=== PATIENT | female | born 1940 | race Caucasian/White ===

== ENCOUNTER 2016-03-19 23:02 | Inpatient (IN) | payer MEDICARE, MEDICAID ==
[~2016-03-19] VITALS: Ht 152.4 cm; Wt 79.2 kg
[2016-03-20] VITALS (8 sets, daily range): BP systolic 105–137; BP diastolic 60–88
[2016-03-20] MEDS ORDERED: ZOLPIDEM TARTRATE 5 MG TABLET PO PRN (03:00)
[2016-03-20] MEDS ORDERED: ALBUTEROL FS 2.5 MG/0.5 ML VIAL.NEB NEB PRN (03:00)
[2016-03-20] MEDS ORDERED: IPRATROPIUM NEB FS 0.5 MG/2.5 ML AMPUL.NEB NEB PRN (03:00)
[2016-03-20] MEDS ORDERED: ONDANSETRON HCL/PF 4 MG/2 ML VIAL IVP PRN (03:00)
[2016-03-20] MEDS ORDERED: MAG HYDROX/AL HYDROX/SIMETH 30 ML UDC PO PRN (03:00)
[2016-03-20] MEDS ORDERED: ACETAMINOPHEN 325 MG TABLET PO PRN (03:00)
[2016-03-20] MEDS ORDERED: MAGNESIUM HYDROXIDE 30 ML UDC PO PRN (03:00)
[2016-03-20] MEDS ORDERED: ENOXAPARIN SODIUM 40 MG/0.4 ML DISP.SYRIN SQ SCH ×2 (03:00→09:00)
[2016-03-20] MEDS ORDERED: HYDROCODONE/APAP 5/325MG 1 EACH TABLET PO PRN (03:00)
[2016-03-20] MEDS ORDERED: Z GUARD REMEDY 2 OZ OINT TP PRN (03:00)
[2016-03-20] MEDS ORDERED: ENOXAPARIN SODIUM 40 MG/0.4 ML DISP.SYRIN SQ ONE (03:48)
[2016-03-20 06:50] LABS: BASOPHILS # (AUTO) 0.1 /CMM (0.0-0.2); BASOPHILS % (AUTO) 0.6 % (0.0-2.0); DIFF TOTAL % 100 %; EOSINOPHILS # (AUTO) 0.2 /CMM (0.0-0.7); HEMATOCRIT 45 % (39-51); HEMOGLOBIN 14.8 g/dL (13.5-17.5); LYMPHOCYTES # (AUTO) 3.5 /CMM (0.8-4.8); LYMPHOCYTES % (AUTO) 23.9 % (20.0-44.0); MEAN CORPUSCULAR HEMOGLOBIN 30 PG (26.0-33.0); MEAN CORPUSCULAR HGB CONC 33 g/dl (31.0-36.0); MEAN CORPUSCULAR VOLUME 90 fL (80-96); MONOCYTES # (AUTO) 1.4 /CMM (0.1-1.30); MONOCYTES % (AUTO) 9.3 % (2.0-12.0); NEUTROPHILS # (AUTO) 9.7 /CMM (1.8-8.9); NEUTROPHILS % (AUTO) 65.2 % (43.0-81.0); PLATELET COUNT (AUTO) 286 /CMM (150-450); RED BLOOD CELL COUNT(AUTO) 4.97 MIL/uL (4.5-6.0); WHITE BLOOD COUNT (AUTO) 14.9 K/uL (4.3-11.0)
[2016-03-20 07:24] LABS: ALBUMIN 2.9 g/dL (3.4-5.0); BILIRUBIN,TOTAL 0.4 mg/dL (0.2-1.0); CALCIUM, SERUM 8.8 mg/dL (8.5-10.1); CREATININE 0.7 mg/dL (0.6-1.3); PHOSPHORUS 4.1 mg/dL (2.5-4.9); POTASSIUM 4.3 mmol/L (3.5-5.1); TOTAL PROTEIN, SERUM 7.5 g/dL (6.4-8.2)
[2016-03-20] MEDS ORDERED: VERA120C3 PO (07:38)
[2016-03-20] MEDS ORDERED: ACAR25TA2 PO (07:38)
[2016-03-20] MEDS ORDERED: ALPR0.5T8 PO (07:38)
[2016-03-20] MEDS ORDERED: METF500T4 PO (07:38)
[2016-03-20] MEDS ORDERED: LUBI24CA7 PO (07:38)
[2016-03-20] MEDS ORDERED: LEVO75TA7 PO (07:38)
[2016-03-20] MEDS ORDERED: IBUP-1482 PO (07:38)
[2016-03-20] MEDS ORDERED: CELE-85 PO (07:38)
[2016-03-20] MEDS ORDERED: VALS1TAB50 PO (07:38)
[2016-03-20] MEDS ORDERED: UMEC1BLS IH (07:38)
[2016-03-20] MEDS ORDERED: BLOO-668 IN (07:38)
[2016-03-20] MEDS ORDERED: PRAV20TA4 PO (07:38)
[2016-03-20] MEDS ORDERED: GABA-534 PO (07:38)
[2016-03-20] MEDS ORDERED: LIRA0.6P2 SQ (07:41)
[2016-03-20] MEDS: PANTOPRAZOLE 40 MG TABLET.DR PO SCH (08:36)
[2016-03-20] MEDS: ASPIRIN 325 MG TABLET PO SCH (09:15)
[2016-03-20] MEDS ORDERED: RISE150T PO (09:16)
[2016-03-20] MEDS ORDERED: METH10TA2 PO (10:00)
[2016-03-20] MEDS ORDERED: IV SET PRIMARY PUMP SET 1 EA INFUS.SET MC ONE (12:20)
[2016-03-20] MEDS: Magnesium 1GM/D5W 100ML PREMIX 100 ML IV SCH ×4 (12:45→18:35)
[2016-03-20] MEDS ORDERED: ALPRAZOLAM 0.5 MG TABLET PO PRN (15:30)
[2016-03-20] MEDS ORDERED: IBUPROFEN 400 MG TABLET PO PRN (16:30)
[2016-03-20] MEDS: GABAPENTIN 300 MG CAPSULE PO SCH (17:15)
[2016-03-20] MEDS: METFORMIN 500 MG TABLET PO SCH (17:15)
[2016-03-20] MEDS: METHADONE HCL 10 MG TABLET PO SCH (17:16)
[2016-03-20] MEDS: HYDROGEL DRESSING 90 GM TUBE TP SCH (17:16)
[2016-03-20] MEDS: BLOOD SUGAR DIAGNOSTIC 1 EACH STRIP IN SCH (17:19)
[2016-03-20] MEDS ORDERED: PRAVASTATIN SODIUM 20 MG TABLET PO SCH (18:00)
[2016-03-20] MEDS ORDERED: Magnesium 1GM/D5W 100ML PREMIX PIGGYBACK IV ONE (18:30)
[2016-03-20] MEDS ORDERED: Magnesium 1GM/D5W 100ML PREMIX 100 ML IV SCH (18:30)
[2016-03-20] MEDS: ATORVASTATIN 40 MG TABLET PO SCH (21:40)
[2016-03-21] VITALS (7 sets, daily range): BP systolic 108–140; BP diastolic 58–82
[2016-03-21] MEDS: PANTOPRAZOLE 40 MG TABLET.DR PO SCH (08:39)
[2016-03-21] MEDS: LEVOTHYROXINE SODIUM 75 MCG TABLET PO SCH (08:39)
[2016-03-21] MEDS: ENOXAPARIN SODIUM 40 MG/0.4 ML DISP.SYRIN SQ SCH (09:26)
[2016-03-21] MEDS: GABAPENTIN 300 MG CAPSULE PO SCH ×2 (09:27→18:10)
[2016-03-21] MEDS: METFORMIN 500 MG TABLET PO SCH ×2 (09:28→18:09)
[2016-03-21] MEDS: METHADONE HCL 10 MG TABLET PO SCH (09:28)
[2016-03-21] MEDS: VERAPAMIL SR 120 MG TABLET.SA PO SCH (09:29)
[2016-03-21] MEDS: BLOOD SUGAR DIAGNOSTIC 1 EACH STRIP IN SCH ×3 (09:34→17:53)
[2016-03-21] MEDS: ASPIRIN 325 MG TABLET PO SCH (09:40)
[2016-03-21] MEDS: HYDROGEL DRESSING 90 GM TUBE TP SCH (09:40)
[2016-03-21 10:47] LABS: KETONES,URINE NEGATIVE (NEGATIVE); LEUKOCYTE ESTERASE ,URINE 1+ (NEGATIVE)
[2016-03-21 11:09] LABS: ADD UA MICROSCOPIC YES
[2016-03-21 11:11] LABS: ADD URINE CULTURE YES; RBC,URINE 0-2 /HPF (0-2)
[2016-03-21] MEDS: VALSARTAN 80 MG TABLET PO SCH (12:06)
[2016-03-21] MEDS: ATORVASTATIN 40 MG TABLET PO SCH (21:30)
[2016-03-22 08:00] VITALS: BP 129/73
[2016-03-22] MEDS: ASPIRIN 325 MG TABLET PO SCH (08:18)
[2016-03-22] MEDS: METFORMIN 500 MG TABLET PO SCH (08:18)
[2016-03-22 08:20] VITALS: BP 129/73
[2016-03-22] MEDS: METHADONE HCL 10 MG TABLET PO SCH (08:20)
[2016-03-22] MEDS: PANTOPRAZOLE 40 MG TABLET.DR PO SCH (08:20)
[2016-03-22] MEDS: LEVOTHYROXINE SODIUM 75 MCG TABLET PO SCH (08:20)
[2016-03-22] MEDS: VERAPAMIL SR 120 MG TABLET.SA PO SCH (08:20)
[2016-03-22] MEDS: VALSARTAN 80 MG TABLET PO SCH (08:20)
[2016-03-22] MEDS: GABAPENTIN 300 MG CAPSULE PO SCH (08:20)
[2016-03-22] MEDS: BLOOD SUGAR DIAGNOSTIC 1 EACH STRIP IN SCH ×2 (08:21→12:11)
[2016-03-22] MEDS: ENOXAPARIN SODIUM 40 MG/0.4 ML DISP.SYRIN SQ SCH (08:24)
[2016-03-22] MEDS: HYDROGEL DRESSING 90 GM TUBE TP SCH (08:25)
[2016-03-22] MEDS ORDERED: Aspirin PO (12:33)
[2016-03-22] MEDS ORDERED: MUPIROCIN OINT 2% 22 GM TUBE SCH (21:00)
== END 2016-03-22 14:22 | disposition home or self-care (01) | DRG 65 ==
LOC: EDSEX 03-20 01:54 → MED 03-20 01:54 → TELE 03-20 02:52 → MED 03-20 23:50 → TELE 03-21 00:04 → MED 03-21 09:08 → TELE 03-21 09:10 → MED 03-21 20:33 → TELE 03-21 20:34
PROVIDERS: ADMIT Family Medicine; ATTEND Family Medicine
DX: I63.9 Cerebral infarction, unspecified (principal); E44.1 Mild protein-calorie malnutrition; D72.829 Elevated white blood cell count, unspecified; E03.9 Hypothyroidism, unspecified; E11.9 Type 2 diabetes mellitus without complications; E66.9 Obesity, unspecified; E78.5 Hyperlipidemia, unspecified; G89.29 Other chronic pain; I10 Essential (primary) hypertension; M19.90 Unspecified osteoarthritis, unspecified site; Z79.891 Long term (current) use of opiate analgesic; Z68.34 Body mass index [BMI] 34.0-34.9, adult; R47.02 Dysphasia
CPT/HCPCS: 36415; 80053-TC; 80061-TC; 81000-TC; 82962-TC; 83735-TC; 84100-TC; 85025-TC; 87081-TC; 87086-TC; 92521; 92611-TC; 93307-TC; 93880-TC; 94799-TC; 97001-TC; 97003-TC; 97112-TC; A6248; A6402; A6403; J1650; J3475; Z7610